=== PATIENT | male | born 1960 | race Caucasian/White ===

== ENCOUNTER 2017-01-17 12:31 | Emergency (ER) | payer OTHER ==
[2017-01-17] MEDS ORDERED: NS 1,000 ML IV ONE ×2 (13:14→13:23)
[2017-01-17] MEDS ORDERED: HALOPERIDOL LACT 5 MG/ML INJ IVP ONE ×2 (13:18→14:17)
[2017-01-17 13:40] LABS: % IMMATURE GRANULYOCYTES 0.6 % (0.0-1.1); ABSOLUTE IMMATURE GRANULOCYTES 0.14 10^3/uL (0.00-0.10); ADD DIFF? NO; ADD MORPH? NO; ADD SCAN? NO; ATYPICAL LYMPHOCYTE FLAG 0 (0-99); FRAGMENT RBC FLAG 0 (0-99); HEMATOCRIT 42.7 % (40.0-51.0); HEMOGLOBIN 14.2 g/dL (13.7-17.5); LEFT SHIFT FLG 20 (0-99); LIPEMIA HEMOLYSIS FLAG 80 (0-99); MEAN CELL HEMOGLOBIN 30.4 pg (27.9-34.1); MEAN CELL HEMOGLOBIN CONCENTR. 33.3 g/dL (32.4-36.7); MEAN CELL VOLUME 91.4 fL (81.5-99.8); PLATELET CLUMPS FLAG 0 (0-99); PLATELET COUNT 344 10^3/uL (150-400); RED BLOOD CELL COUNT 4.67 10^6/uL (4.40-6.38); RED CELL DISTRIBUTION WIDTH 13.5 % (11.5-15.2)
[2017-01-17 13:45] LABS: ANION GAP 18 mEq/L (8-16); CARBON DIOXIDE 21 mEq/l (22-31); CHLORIDE 105 mEq/L (97-110); CREATININE 1.2 mg/dL (0.7-1.3); GLOMERULAR FILTRATION RATE > 60; GLUCOSE 103 mg/dL (70-100); POTASSIUM 4.8 mEq/L (3.5-5.2); SODIUM 144 mEq/L (134-144)
--- NOTE | 2017-01-17 14:16 | UCPHY ---
H & P Patient Type: Established Chief Complaint Nursing Narrative: vomiting, diarrhea 2 hours. finished 12.1 mile marathon this am. Time Seen by Provider: 01/17/17 12:42 HPI/ROS: CHIEF COMPLAINT: Vomiting and abdominal pain History by patient HISTORY OF PRESENT ILLNESS: 56 yo man with history of gastroparesis and prior episodes of severe vomiting for which she has seen many specialists in the past and which often occur after extreme sporting events, though also at other times as well, presents today with nausea vomiting abdominal pain which began after running a half marathon. On arrival here the patient was retching and unable to provide a history initially. Patient states he drinks very little water prior to running a race, did not take anything during the race and only drank a little bit afterwards but then began vomiting immediately after that. This is similar to prior episodes that he has had. He tried taking some Zofran at home without any relief REVIEW OF SYSTEMS: As in HPI, and all other systems reviewed and are negative Source: Patient, Family - Personal History Tetanus Vaccine Date: 2012 - Medical/Surgical History Hx Asthma: No Hx Chronic Respiratory Disease: No Hx Diabetes: No Hx Cardiac Disease: No Hx Renal Disease: No Hx Cirrhosis: No Hx Alcoholism: No Hx HIV/AIDS: No Hx Splenectomy or Spleen Trauma: No Other PMH: Gastroparesis, cholecystectomy - Family History Significant Family History: No pertinent family hx - Social History Smoking Status: Former smoker - Physical Exam Exam: General Appearance: Alert, pale, uncomfortable appearing. Poor eye contact Eyes: Pupils equal and round no pallor or injection. ENT, Mouth: Mucous membranes moist. Respiratory: Normal, effort, There are no retractions, lungs are clear to auscultation. Cardiovascular: Regular rate and rhythm. Gastrointestinal: Abdomen is soft and mild diffusely nontender, no masses, bowel sounds normal. Neurological: Awake, alert and oriented x 3, no pronator drift, normal gait, no pronator drift Skin: Warm and dry, no rashes. Musculoskeletal: Neck is supple nontender. Extremities are symmetrical, full range of motion. Psychiatric: Patient has flat affect, there is no agitation. Constitutional: Initial Vital Signs Temperature (C) 36.9 C 01/17/17 13:09 Heart Rate 72 01/17/17 13:09 Respiratory Rate 18 01/17/17 13:09 Blood Pressure 125/73 H 01/17/17 13:09 O2 Sat (%) 92 01/17/17 13:09 O2 Delivery Mode Nasal Cannula O2 (L/minute) 2 Allergies/Adverse Reactions: Penicillins Allergy (Severe, Verified 06/28/16 17:45) Anaphylaxis Home Medications: Medication Instructions Recorded Omeprazole [Prilosec 20 mg] 20 mg PO DAILY 07/09/13 Glucosamine HCl/Chondr Booker A Na 1 each PO DAILY 06/28/16 [Glucosamine-Chondroitin Cap] Ondansetron [Zofran Odt] 8 mg PO Q6 PRN 06/28/16 Medical Decision Making ED Course/Re-evaluation: 56-year-old male with a long history of abdominal pain and vomiting thought to be due to gastroparesis for which he has seen multiple specialists in the past and is often associated with extreme sports presents with nausea and vomiting after half marathon today. Patient was initially ill appearing but improved with IV fluids and Haldol. Labs were notable for elevated white blood cell how , normal sodium and elevated BUN but normal creatinine ratio that suggests dehydration. There is no fever or other indication of acute infection. While being observed in the emergency department he began to have more nausea and was given a 2nd dose of Haldol and a 2nd L of IV normal saline, after which she slept and then woke feeling much better. Vital signs remained stable and the patient was improved. As this is a chronic ongoing problem for him, there is no indication for imaging. Patient is discharged home in improved condition to follow up with his primary care physician. - Data Points Laboratory Results: Laboratory Results 01/17/17 13:10 01/17/17 13:10 01/17/17 01/17/17 13:10 13:10 WBC 22.64 10^3/uL H 10^3/uL (3.80-9.50) RBC 4.67 10^6/uL 10^6/uL (4.40-6.38) Hgb 14.2 g/dL g/dL (13.7-17.5) Hct 42.7 % % (40.0-51.0) MCV 91.4 fL fL (81.5-99.8) MCH 30.4 pg pg (27.9-34.1) MCHC 33.3 g/dL g/dL (32.4-36.7) RDW 13.5 % % (11.5-15.2) Plt Count 344 10^3/uL 10^3/uL (150-400) MPV 9.0 fL fL (8.7-11.7) Neut % (Auto) 83.1 % H % (39.3-74.2) Lymph % (Auto) 11.7 % L % (15.0-45.0) [place] % (Auto) 4.4 % L % (4.5-13.0) Eos % (Auto) 0.0 % L % (0.6-7.6) Baso % (Auto) 0.2 % L % (0.3-1.7) Nucleat RBC Rel Count 0.0 % % (0.0-0.2) Absolute Neuts (auto) 18.80 10^3/uL H 10^3/uL (1.70-6.50) Absolute Lymphs (auto) 2.65 10^3/uL 10^3/uL (1.00-3.00) Absolute Monos (auto) 1.00 10^3/uL H 10^3/uL (0.30-0.80) Absolute Eos (auto) 0.01 10^3/uL L 10^3/uL (0.03-0.40) Absolute Basos (auto) 0.04 10^3/uL 10^3/uL (0.02-0.10) Absolute Nucleated RBC 0.00 10^3/uL 10^3/uL (0-0.01) Immature Gran % 0.6 % % (0.0-1.1) Immature Gran # 0.14 10^3/uL H 10^3/uL (0.00-0.10) Sodium 144 mEq/L mEq/L (134-144) Potassium 4.8 mEq/L mEq/L (3.5-5.2) Chloride 105 mEq/L mEq/L (97-110) Carbon Dioxide 21 mEq/l L mEq/l (22-31) Anion Gap 18 mEq/L H mEq/L (8-16) BUN 38 mg/dL H mg/dL (7-23) Creatinine 1.2 mg/dL mg/dL (0.7-1.3) Estimated GFR > 60 Glucose 103 mg/dL H mg/dL (70-100) Calcium 10.0 mg/dL mg/dL (8.5-10.4) Medications Given: Discontinued Medications Haloperidol Lactate (Haldol Injection) 2.5 mg IVP EDNOW ONE Stop: 01/17/17 13:19 Last Admin: 01/17/17 13:25 Dose: 2.5 mg Haloperidol Lactate (Haldol Injection) 2.5 mg IVP EDNOW ONE Stop: 01/17/17 14:18 Last Admin: 01/17/17 14:36 Dose: 2.5 mg Sodium Chloride (Ns) 1,000 mls @ 0 mls/hr IV ONCE ONE PRN Reason: Wide Open Stop: 01/17/17 13:15 Last Admin: 01/17/17 13:05 Dose: 1,000 mls Sodium Chloride (Ns) 1,000 mls @ 0 mls/hr IV ONCE ONE PRN Reason: Wide Open Stop: 01/17/17 13:24 Last Admin: 01/17/17 13:30 Dose: 1,000 mls Departure - Departure Clinical Impression: Dehydration Vomiting Qualifiers: Vomiting type: unspecified Vomiting Intractability: non-intractable Nausea presence: with nausea Qualified Code(s): R11.2 - Nausea with vomiting, unspecified Condition: Fair Instructions: Acute Nausea and Vomiting (ED) Additional Instructions: You were seen by Dr. Delores Alejandro today. Return for any worsening or new concerns. Please follow up with Dr. Galeas next week. Referrals: NONE *PRIMARY CARE P,. [Primary Care Provider] - As per Instructions - PQRS PQRS Measurement: NA
[2017-01-17 15:32] VITALS: RESP 16
[2017-01-17 16:13] VITALS: BP 105/53; PULSE 48; TEMP 97.7; O2SAT 95
== END 2017-01-17 15:49 | disposition home or self-care (01) ==
LOC: CED 12:31
DX: R11.2 Nausea with vomiting, unspecified (principal); E86.0 Dehydration; K31.84 Gastroparesis
CPT/HCPCS: 80048-PO; 85025-PO; 96361-PO; 96374-PO; 96376-PO; 99214-PO; G0463-PO

== ENCOUNTER 2017-04-18 12:41 | Emergency (ER) | payer OTHER ==
[2017-04-18] MEDS ORDERED: NS 1,000 ML IV ONE ×2 (12:55→13:42)
[2017-04-18] MEDS ORDERED: ONDANSETRON 4 MG/2 ML VIAL IVP ONE (12:55)
[2017-04-18 13:14] LABS: CREATININE 1.3 mg/dL (0.7-1.3); POTASSIUM 4.8 mEq/L (3.5-5.2)
--- NOTE | 2017-04-18 13:20 | CPEKG ---
Heart Rate: 55 RR Interval: 1091 P-R Interval: 176 QRSD Interval: 96 QT Interval: 508 QTC Interval: 486 P Angel[place]: 80 QRS Angelica: 31 T Wave Angelica: 43 EKG Severity - BORDERLINE ECG - EKG Impression: SINUS RHYTHM EKG Impression: BORDERLINE PROLONGED QT INTERVAL Electronically Signed By: Acosta Dunn 18-Apr-2017 13:57:34
[2017-04-18] MEDS ORDERED: METOCLOPRAMIDE 10 MG/2 ML VIAL IVP ONE (13:28)
[2017-04-18 13:40] LABS: COLOR YELLOW; LEUKOCYTE ESTERASE,URINE NEGATIVE (NEGATIVE); NITRITE,URINE NEGATIVE (NEGATIVE); PH,URINE 5.5 (5.0-7.5)
[2017-04-18 13:46] LABS: HYALINE CASTS >182 /lpf (0-1); MUCUS 1+ /lpf (NONE-1+)
[2017-04-18 13:47] LABS: WBC,URINE 25-50 /hpf (0-3)
[2017-04-18 13:48] LABS: AMORPHOUS 1+ /hpf (NONE-1+); BACTERIA TRACE /hpf (NONE SEEN)
--- NOTE | 2017-04-18 13:51 | EDPHY ---
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 hx of Gastroparesis Time Seen by Provider: 04/18/17 13:05 HPI/ROS: This patient just finished a full Triatholon at 11:00 a.m. and developed vomiting thereafter. He has a history of gastroparesis and had a similar episode in June of 2016 after a triathlon. The patient was found have an accelerated junctional rhythm with his presentation on June 29, 2016 to [facility] and at that time he had peaked T-waves and mildly elevated troponin the prompted admission for further evaluation. He subsequently had a resolution to normal sinus rhythm but with treadmill exercise test had recurrence of the junctional rhythm and evidence of potential ischemia. Due to this he subsequently had a myocardial profusion test on 06/[address] Villalpando that showed no evidence of ischemic abnormalities. He also had an echocardiogram on June 29, 2016 that revealed mild aortic insufficiency and was otherwise unremarkable. He reports vomiting 4 times since the race attributes this to gastric paresis. He feels fatigued, consistent with prior try Ethilon denies any other associated symptoms. He felt well prior to the race. ROS: Constitutional: No fevers. No other constitutional symptoms prior to the race. Musculoskeletal: No significant muscle pain. HEENT: No recent URI symptoms. No sore throat. No other complaints Pulmonary: No coughing. No dyspnea. No pleuritic pain. Cardiovascular: No chest pain, no heart palpitations, no lower extremity swelling. GI: He denies any abdominal pain. : No complaints Integumentary: No rash. Complete review of symptoms is otherwise negative. Source: Patient, Family (Accompanied by his also provides history) - Personal History Current Tetanus Diphtheria and Acellular Pertussis (TDAP): Yes Tetanus Vaccine Date: 2012 - Medical/Surgical History Hx Asthma: No Hx Chronic Respiratory Disease: No Hx Diabetes: No Hx Cardiac Disease: No Hx Renal Disease: No Hx Cirrhosis: No Hx Alcoholism: No Hx HIV/AIDS: No Hx Splenectomy or Spleen Trauma: No Other PMH: Gastroparesis, cholecystectomy. GERD - Social History Smoking Status: Former smoker Constitutional: Initial Vital Signs Temperature (C) 36.3 C 04/18/17 12:45 Heart Rate 68 04/18/17 12:45 Respiratory Rate 20 04/18/17 12:45 Blood Pressure 115/75 04/18/17 12:45 O2 Sat (%) 98 04/18/17 12:45 O2 Delivery Mode Room Air Allergies/Adverse Reactions: Penicillins Allergy (Severe, Verified 04/18/17 12:54) Anaphylaxis Home Medications: Medication Instructions Recorded Omeprazole [Prilosec 20 mg] 20 mg PO DAILY 07/09/13 Glucosamine HCl/Chondr Booker A Na 1 each PO DAILY 06/28/16 [Glucosamine-Chondroitin Cap] Ondansetron [Zofran Odt] 8 mg PO Q6 PRN 06/28/16 Ondansetron Odt [Zofran Odt] 4 - 8 mg PO Q4PRN PRN #4 tab 04/18/17 Medical Decision Making - Diagnostics EKG Interpretation: 12 lead EKG performed at 1:19 p.m. indication vomiting, rule out TX Sinus rhythm at 55 Intervals: Normal throughout except for QTC of [address] [place]: P of 80, QRS of 31, T 43 ST segments are normal throughout T-waves are somewhat peaked anteriorly but appear consistent in terms of their proportion to QRS to a previous EKG performed June 29, 2016. ED Course/Re-evaluation: IV normal saline bolus Zofran 4 mg Reglan 5 mg and Benadryl 12.5 mg IV 2nd L saline Review of labs reveals significant leukocytosis. Electrolytes are normal. Urinalysis is normal exception of ketones consistent with dehydration. Discussion: Patient with nausea vomiting, history of gastroparesis after finishing try Ethilon with mild dehydration. He has significant leukocytosis on his labs but similar to his leukocytosis after finishing it try Ethilon 1915. White count that time was 23,000 with no infectious etiology noted during hospital workup. Findings today are consistent with extreme exertion of his triathalon. I Find no evidence of acute TX currently or other complicating factors. Will plan to hydrate the patient with discharge home provided continued improvement. Patient feels improved after 2 L normal saline and antiemetics. Also treat him with Toradol due to complaint of left trapezius pain with history of the same. On repeat examination at around 2:10 p.m. the patient has left trapezius tenderness that reproduces his symptoms. This treated with Toradol 30 mg IV with improvement. He then tolerates p. o. fluids and ambulates without difficulty feeling significantly improved. Discussion: Patient here with findings consistent with heat exhaustion and vomiting improved with treatment without evidence of other complicating factors. He has had thorough cardiac workup in the past on June 30 2016 that was negative for ischemic disease or significant valvular/structural disease. Will plan to discharge him home with his with Jon pulido.r.nNuria. He will return for any significant worsening despite the treatment plan. - Data Points Laboratory Results: Laboratory Results 04/18/17 13:00 04/18/17 04/18/17 04/18/17 13:30 13:00 13:00 Sodium 145 mEq/L H mEq/L (134-144) Potassium 4.8 mEq/L mEq/L (3.5-5.2) Chloride 107 mEq/L mEq/L (97-110) Carbon Dioxide 21 mEq/l L mEq/l (22-31) Anion Gap 17 mEq/L H mEq/L (8-16) BUN 28 mg/dL H mg/dL (7-23) Creatinine 1.3 mg/dL mg/dL (0.7-1.3) Estimated GFR 57 Glucose 87 mg/dL mg/dL (70-100) Calcium 10.0 mg/dL mg/dL (8.5-10.4) Total Bilirubin 1.1 mg/dL mg/dL (0.1-1.4) Conjugated Bilirubin 0.4 mg/dL mg/dL (0.0-0.5) Unconjugated Bilirubin 0.7 mg/dL mg/dL (0.0-1.1) AST 63 IU/L H IU/L (17-59) ALT 65 IU/L IU/L (21-72) Alkaline Phosphatase 86 IU/L IU/L (38-126) Total Protein 7.0 g/dL g/dL (6.3-8.2) Albumin 4.5 g/dL g/dL (3.5-5.0) Lipase 190.0 IU/L IU/L (23-300) Urine Color YELLOW Urine Appearance CLEAR Urine pH 5.5 (5.0-7.5) Ur Specific [place] >= 1.030 (1.002-1.030) Urine Protein 2+ H (NEGATIVE) Urine Ketones 2+ H (NEGATIVE) Urine Blood NEGATIVE (NEGATIVE) Urine Nitrate NEGATIVE (NEGATIVE) Urine Bilirubin NEGATIVE (NEGATIVE) Urine Urobilinogen 0.2 EU EU (0.2-1.0) Ur Leukocyte Esterase NEGATIVE (NEGATIVE) Urine RBC 5-10 /hpf H /hpf (0-3) Urine WBC 25-50 /hpf H /hpf (0-3) Ur Epithelial Cells TRACE /lpf /lpf (NONE-1+) Amorphous Sediment 1+ /hpf /hpf (NONE-1+) Urine Bacteria TRACE /hpf H /hpf (NONE SEEN) Hyaline Casts >182 /lpf H /lpf (0-1) Urine Mucus 1+ /lpf /lpf (NONE-1+) Urine Glucose NEGATIVE (NEGATIVE) Medications Given: Discontinued Medications Diphenhydramine HCl (Benadryl Injection) 25 mg IVP EDNOW ONE Stop: 04/18/17 13:29 Last Admin: 04/18/17 13:41 Dose: 12.5 mg Sodium Chloride (Ns) 1,000 mls @ 0 mls/hr IV ONCE ONE PRN Reason: Wide Open Stop: 04/18/17 12:56 Last Admin: 04/18/17 13:00 Dose: 1,000 mls Sodium Chloride (Ns) 1,000 mls @ 0 mls/hr IV ONCE ONE PRN Reason: Wide Open Stop: 04/18/17 13:43 Last Admin: 04/18/17 13:42 Dose: 1,000 mls Ketorolac Tromethamine (Toradol) 30 mg IVP EDNOW ONE Stop: 04/18/17 14:21 Last Admin: 04/18/17 14:28 Dose: 30 mg Metoclopramide HCl (Reglan Injection) 5 mg IVP EDNOW ONE Stop: 04/18/17 13:29 Last Admin: 04/18/17 13:41 Dose: 5 mg Ondansetron HCl (Zofran) 4 mg IVP EDNOW ONE Stop: 04/18/17 12:56 Last Admin: 04/18/17 13:00 Dose: 4 mg Departure - Departure Disposition: Home, Routine, Self-Care Clinical Impression: Gastroparesis Vomiting Qualifiers: Vomiting type: unspecified Vomiting Intractability: non-intractable Nausea presence: with nausea Qualified Code(s): R11.2 - Nausea with vomiting, unspecified Heat exhaustion Qualifiers: Encounter type: initial encounter Qualified Code(s): T67.5XXA - Heat exhaustion , unspecified, initial encounter Condition: Good Instructions: Heat Exhaustion (ED), Acute Nausea and Vomiting (ED) Additional Instructions: Diagnosis: 1. Vomiting 2. Gastroparesis 3. Heat exhaustion Plan: Drink plenty fluids Zofran for nausea Ibuprofen for aches Follow up with primary care physician for any ongoing symptoms Return for any significant worsening despite treatment plan. Consider holding off on full triathalons Referrals: HERMINIA STALLINGS [Primary Care Provider] - As per Instructions Prescriptions: Ondansetron Odt [Zofran Odt] 4 - 8 mg PO Q4PRN PRN #4 tab PRN Reason: Vomiting
[2017-04-18 13:58] LABS: ALBUMIN 4.5 g/dL (3.5-5.0); BILIRUBIN,TOTAL 1.1 mg/dL (0.1-1.4); BILIRUBIN-CONJUGATED 0.4 mg/dL (0.0-0.5); BILIRUBIN-UNCONJUGATED 0.7 mg/dL (0.0-1.1)
[2017-04-18] MEDS ORDERED: KETOROLAC 30 MG/1 ML SDV IVP ONE (14:20)
[2017-04-18 14:51] VITALS: BP 126/63; PULSE 44; RESP 16; TEMP 97.7; O2SAT 100
== END 2017-04-18 14:50 | disposition home or self-care (01) ==
LOC: CED 12:41
DX: K31.84 Gastroparesis (principal); T67.5XXA Heat exhaustion, unspecified, initial encounter; Z87.891 Personal history of nicotine dependence
CPT/HCPCS: 80048-PO; 80076-PO; 81003-PO; 81015-PO; 83690-PO; 96374; J1200; J1885; J2405; J2765

== ENCOUNTER 2017-05-15 15:54 | Emergency (ER) | payer OTHER ==
--- NOTE | 2017-05-15 16:01 | EDPHY ---
H & P HPI/ROS: CHIEF COMPLAINT: Vomiting HISTORY OF PRESENT ILLNESS: This patient is a 56 year old male arriving via EMS with history of gastroparesis complaining of multiple episodes of vomiting beginning while he competed in a Half Ironman race earlier today. He completed a 1.2 mile swim and 56 mile bicycle ride, but was not able to complete the run due to vomiting. He was given Zofran and fentanyl in transport for symptom management. Vitals in transport included HR 42, BP 102/54. He has been seen four times in the past year for similar symptoms under similar conditions (competitive exertion). When participating in these events he does not hydrate adequately because of his gastroparesis. He had prior admission and negative cardiac workup on one of these visits. He is bradycardic, but this is usual for him given his activity level and he has no history of heart rhythm abnormalities. He usually takes Zofran at home to control nausea associated with his gastroparesis, and takes it once every 2-3 weeks. Currently his vomiting is unresolved. He denies muscle swelling, dark urine. He has not felt confused. REVIEW OF SYSTEMS: A ten point review of systems was performed and is negative with the exception of the items mentioned in the HPI. - Personal History Tetanus Vaccine Date: 2012 - Medical/Surgical History PMH: 1. Gastroparesis 2. Cholecystectomy 3. GERD Hx Asthma: No Hx Chronic Respiratory Disease: No Hx Diabetes: No Hx Cardiac Disease: No Hx Renal Disease: No Hx Cirrhosis: No Hx Alcoholism: No Hx HIV/AIDS: No Hx Splenectomy or Spleen Trauma: No - Social History Smoking Status: Former smoker Additional Social History: Lives in [place]. . at bedside. Former smoker. 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 - Physical Exam Exam: General Appearance: Alert. Vital signs reviewed. HR 45. Normal temperature ( 36.6). Vomiting. Eyes: Pupils equal and round, no conjunctival injection, no discharge. Anicteric. ENT, Mouth: Mucous membranes are dry, no oropharyngeal erythema or edema. Neck: No lymphadenopathy, supple. Respiratory: Lungs are clear to auscultation; no wheezes, rales, or rhonchi. Cardiovascular: Bradycardic. No murmur, rub, or gallop. Gastrointestinal: Abdomen is soft and mildly diffusely tender, no masses or organomegaly, bowel sounds present. No guarding. Skin: Warm and dry, no rashes on exposed skin, normal color. Back: Nontender to palpation over the thoracolumbar spine. No CVAT. Extremities: No muscle swelling with examination of extremities. No lower extremity edema, no calf tenderness or swelling. Neurological: Alert and oriented. Moving all four extremities easily and equally. Psychiatric: Normal affect. Constitutional: Initial Vital Signs Temperature (C) 36.6 C 05/15/17 16:03 Heart Rate 46 L 05/15/17 16:03 Respiratory Rate 14 05/15/17 16:03 Blood Pressure 125/60 H 05/15/17 16:03 O2 Sat (%) 98 05/15/17 16:03 O2 Delivery Mode Room Air Allergies/Adverse Reactions: Penicillins Allergy (Severe, Verified 04/18/17 12:54) Anaphylaxis Home Medications: Medication Instructions Recorded Omeprazole [Prilosec 20 mg] 20 mg PO DAILY 07/09/13 Glucosamine/Chondr Booker A Sod 1 each PO DAILY 06/28/16 [Glucosamine-Chondroitin Cap] Ondansetron [Zofran Odt] 8 mg PO Q6 PRN 06/28/16 Ondansetron Odt [Zofran Odt] 4 - 8 mg PO Q4PRN PRN #4 tab 04/18/17 Medical Decision Making - Diagnostics EKG Interpretation: The 12 lead EKG was interpreted by myself. See hard copy and/or "tracemaster" electronic copy for interpretation. Sinus bradycardia, rate 48. ED Course/Re-evaluation: 16:58 Reassessed patient. He is still retching and feeling poorly. Discussed lab results. He has leukocytosis (WBC over 20,000), seen previously when he presented similarly. I do not suspect infection but have considered appendicitis, pancreatitis, gastroenteritis, UTI, gastritis. Cyclic vomiting is also in my differential. He does not have localized abdominal pain. CK is 707--probably not peaked yet, but unlikely to represent significant rhabdomyolysis. Normal creatinine. Urine is not dark. He is not hypo or hyperthermic. I do not think he has heat stroke, heat exhaustion is a possibility. Patient received Reglan initially for nausea and vomiting. This was followed by Phenergan 12.5 mg IV. At 5:15 p.m. he requested an evaluation of his left shoulder. He has been having difficulty with shoulder for over a year, following an injury. It started to flare up again about 2 weeks ago. With vomiting today he is noticing trapezius muscle pain. On examination he has full passive range of motion of his left arm, pain when he tries to elevate his left arm over his head actively. Strength is 5/5 in his left upper extremity. Sensation intact to light touch over both upper extremities. Radial pulses 2+. Does have trapezius muscle spasm on the left. He is being given Valium 2 mg IV for treatment of muscle spasm. Re-evaluated at 6:00 p.m.. Sleeping. 6:30 p.m. patient has been up to bathroom. On reexamination his abdomen is soft with mild diffuse tenderness. He states that his nausea has improved. Vomiting seems to have subsided. Will continue with IV fluids. He has received 2 L normal saline. 7s:15 PM: No further vomiting. He feels well enough to return home. He will FU with his PCP. 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 - Data Points Laboratory Results: Laboratory Results 05/15/17 16:00 05/15/17 16:00 Medications Given: Discontinued Medications Diazepam (Valium Injection) 2 mg IVP EDNOW ONE Stop: 05/15/17 17:25 Last Admin: 05/15/17 17:37 Dose: 2 mg Sodium Chloride (Ns) 1,000 mls @ 0 mls/hr IV EDNOW ONE; Wide Open PRN Reason: Protocol Stop: 05/15/17 16:10 Last Admin: 05/15/17 16:16 Dose: 1,000 mls Sodium Chloride (Ns) 1,000 mls @ 0 mls/hr IV EDNOW ONE; Wide Open PRN Reason: Protocol Stop: 05/15/17 19:37 Last Admin: 05/15/17 19:40 Dose: 1,000 mls Sodium Chloride (Ns) 1,000 mls @ 0 mls/hr IV EDNOW ONE; Wide Open PRN Reason: Protocol Stop: 05/15/17 19:38 Last Admin: 05/15/17 19:39 Dose: 1,000 mls Metoclopramide HCl (Reglan Injection) 10 mg IVP EDNOW ONE Stop: 05/15/17 16:17 Last Admin: 05/15/17 16:18 Dose: 10 mg Promethazine HCl (Phenergan) 12.5 mg IVP EDNOW ONE Stop: 05/15/17 17:03 Last Admin: 05/15/17 17:18 Dose: 12.5 mg Departure - Departure Disposition: Home, Routine, Self-Care Clinical Impression: Dehydration Vomiting Qualifiers: Vomiting type: unspecified Vomiting Intractability: non-intractable Nausea presence: with nausea Qualified Code(s): R11.2 - Nausea with vomiting, unspecified Heat exhaustion Qualifiers: Encounter type: initial encounter Qualified Code(s): T67.5XXA - Heat exhaustion , unspecified, initial encounter Condition: Good Instructions: Dehydration (ED), Acute Nausea and Vomiting (ED), Heat Exhaustion (ED) Additional Instructions: Let Dr. Gilbert know about today's emergency department visit. Return if you have more nausea and vomiting, feel dizzy/lightheaded/faint, have abdominal pain, develop any new or concerning symptoms. Referrals: HERMINIA GILBERT [Primary Care Provider] - As per Instructions Physician Review and Approval Statement: 05/15/17 16:01 Portions of this note were transcribed by the certified medical biller. I, Dr. Anni Matamoros, personally performed the history, physical exam, and medical decision- making; and confirmed the accuracy of the information in the transcribed note.
[2017-05-15 16:04] VITALS: TEMP 97.9
--- NOTE | 2017-05-15 16:07 | CPEKG ---
Heart Rate: 48 RR Interval: 1250 P-R Interval: 160 QRSD Interval: 92 QT Interval: 524 QTC Interval: 469 P [place]: 72 QRS [place]: 34 T Wave [place]: 35 EKG Severity - OTHERWISE NORMAL ECG - EKG Impression: SINUS BRADYCARDIA Electronically Signed By: Anni Matamoros 15-May-2017 18:00:43
[2017-05-15] MEDS ORDERED: NS 1,000 ML IV ONE (16:09)
[2017-05-15] MEDS ORDERED: METOCLOPRAMIDE 10 MG/2 ML VIAL IVP ONE (16:16)
[2017-05-15 16:17] LABS: % IMMATURE GRANULYOCYTES 0.6 % (0.0-1.1); ABSOLUTE IMMATURE GRANULOCYTES 0.12 10^3/uL (0.00-0.10); ADD DIFF? NO; ADD MORPH? NO; ADD SCAN? NO; ATYPICAL LYMPHOCYTE FLAG 0 (0-99); FRAGMENT RBC FLAG 0 (0-99); HEMATOCRIT 39.4 % (40.0-51.0); HEMOGLOBIN 12.6 g/dL (13.7-17.5); LEFT SHIFT FLG 10 (0-99); LIPEMIA HEMOLYSIS FLAG 80 (0-99); MEAN CELL HEMOGLOBIN 29.7 pg (27.9-34.1); MEAN CELL VOLUME 92.9 fL (81.5-99.8); MEAN PLATELET VOLUME 9.3 fL (8.7-11.7); PLATELET CLUMPS FLAG 10 (0-99); PLATELET COUNT 300 10^3/uL (150-400); RED BLOOD CELL COUNT 4.24 10^6/uL (4.40-6.38); RED CELL DISTRIBUTION WIDTH 14.5 % (11.5-15.2)
[2017-05-15 16:44] LABS: ANION GAP 16 mEq/L (8-16); CALCIUM 9.1 mg/dL (8.5-10.4); CARBON DIOXIDE 20 mEq/l (22-31); CHLORIDE 108 mEq/L (97-110); GLOMERULAR FILTRATION RATE > 60; GLUCOSE 76 mg/dL (70-100); POTASSIUM 4.6 mEq/L (3.5-5.2); SODIUM 144 mEq/L (134-144)
[2017-05-15 17:01] LABS: CK-MB INTERPRETATION NEGATIVE (NEGATIVE)
[2017-05-15] MEDS ORDERED: PROMETHAZINE HCL 25 MG/ML INJ IVP ONE (17:02)
[2017-05-15 17:24] VITALS: RESP 16
[2017-05-15] MEDS ORDERED: DIAZEPAM 10 MG/2 ML SYR IVP ONE (17:24)
[2017-05-15 19:26] VITALS: BP 124/67; PULSE 47; O2SAT 98
[2017-05-15] MEDS: NS 1,000 ML IV ONE ×3 (19:38→19:40)
== END 2017-05-15 19:25 | disposition home or self-care (01) ==
LOC: EDUNIT#
DX: R11.2 Nausea with vomiting, unspecified (principal); T67.5XXA Heat exhaustion, unspecified, initial encounter; E86.0 Dehydration; Z87.891 Personal history of nicotine dependence
CPT/HCPCS: 96374; J2550; J2765

== ENCOUNTER 2018-03-14 06:05 | Emergency (ER) | payer OTHER ==
[2018-03-14] MEDS ORDERED: ONDANSETRON 4 MG/2 ML VIAL IVP ONE (06:24)
[2018-03-14] MEDS ORDERED: NS 1,000 ML IV ONE ×2 (06:24→06:42)
--- NOTE | 2018-03-14 06:24 | CPEKG ---
Heart Rate: 54 RR Interval: 1111 P-R Interval: 176 QRSD Interval: 92 QT Interval: 460 QTC Interval: 436 P [place]: 70 QRS [place]: 8 T Wave [place]: 57 EKG Severity - NORMAL ECG - EKG Impression: SINUS RHYTHM Electronically Signed By: Jannette Dolan 14-Mar-2018 06:59:33
[2018-03-14] MEDS ORDERED: ONDANSETRON 4 MG/2 ML VIAL ONE (06:25)
--- NOTE | 2018-03-14 06:29 | EDPHY ---
H & P Source: Patient Exam Limitations: Clinical condition (Patient nauseated with dry heaves) - Personal History Tetanus Vaccine Date: 2012 - Medical/Surgical History Hx Asthma: No Hx Chronic Respiratory Disease: No Hx Diabetes: No Hx Cardiac Disease: No Hx Renal Disease: No Hx Cirrhosis: No Hx Alcoholism: No Hx HIV/AIDS: No Hx Splenectomy or Spleen Trauma: No Other PMH: Gastroparesis, cholecystectomy. GERD - Social History Smoking Status: Former smoker Alcohol Use: None Drug Use: None Time Seen by Provider: 03/14/18 06:17 HPI/ROS: CC: vomiting and abdominal pain HPI: This 57-year-old male with past medical history including idiopathic gastroparesis presents to the emergency department today complaining of vomiting since 4:00 a.m. He was not feeling well yesterday due to "cold-like" symptoms but the vomiting only just started approximately 2 hours prior to arrival. He also complains of diffuse abdominal discomfort that started after the vomiting. The abdominal pain radiates through to his back. He describes it as an ache and rates it at 8/10. He states he has had normal bowel movements. He denies chest pain or shortness of breath. He has felt sweaty but is unsure if he had a fever. He denies chills. He has had this type of vomiting in the past secondary to his gastroparesis and also when he has been strenuously exercising. He states he was not active over the prior few days. He has taken Zofran at home in the past but has not taken any for quite some time. He last took his usual medications yesterday morning. REVIEW OF SYSTEMS: Constitutional: No fever, no chills. Eyes: No discharge. ENT: No sore throat. Respiratory: No cough, no shortness of breath. Cardiac: No chest pain, no palpitations. Gastrointestinal: See HPI. Genitourinary: No dysuria. Musculoskeletal: No muscle aches. Skin: No rashes. Neurological: No headache. (Jannette Dolan) - Medical/Surgical History PMH: PMH: Gastroparesis, gastroesophageal reflux disease, depression, elevated troponin in the past thought to be due to strenuous exertion. Patient had a normal myocardial perfusion scan on 06/30/2016. PSH: Cholecystectomy FH: Father with h/o CAD younger than 55, rheumatic heart disease Allergies: Penicillins Meds: Lexapro, Abilify, Zofran, Prilosec (Jannette Dolan) - Physical Exam Exam: General Appearance: Alert, moderate distress, ashen appearance. Eyes: Pupils equal and round no pallor or injection. ENT, Mouth: Mucous membranes are moist. Respiratory: There are no retractions, lungs are clear to auscultation. Cardiovascular: Regular rate and rhythm. Occasional ectopic beat. Gastrointestinal: Diffusely tender to palpation. No rebound. Hyperactive bowel sounds. Neurological: Awake and alert, sensory and motor exams grossly normal. Skin: pale, slightly diaphoretic. Musculoskeletal: Neck is supple nontender. Extremities are symmetrical, full range of motion. Psychiatric: Patient is oriented X 3, there is no agitation. DIFFERENTIAL DIAGNOSIS: After history and physical exam differential diagnosis was considered for but not limited to: nausea, vomiting, gastroparesis, pancreatitis, bowel obstruction, viral syndrome, cardiac ischemia (Jannette Dolan) Constitutional: Initial Vital Signs Temperature (C) 36.8 C 03/14/18 06:37 Heart Rate 56 L 03/14/18 06:37 Respiratory Rate 20 03/14/18 06:37 Blood Pressure 157/78 H 03/14/18 06:37 O2 Sat (%) 100 03/14/18 06:37 O2 Delivery Mode Nasal Cannula O2 (L/minute) 2 Allergies/Adverse Reactions: Penicillins Allergy (Severe, Verified 03/14/18 06:06) Anaphylaxis Home Medications: Medication Instructions Recorded Omeprazole [Prilosec 20 mg] 20 mg PO DAILY 07/09/13 ARIPiprazole [Abilify 5 mg (*)] 03/14/18 Escitalopram Oxalate [Lexapro 10 03/14/18 MG] Ondansetron Odt [Zofran Odt 4 mg 03/14/18 (*)] Ondansetron Odt [Zofran Odt 4 mg 4 mg PO Q4 PRN #20 tab 03/14/18 (RX)] Medical Decision Making - Diagnostics EKG Interpretation: Sinus bradycardia, HR 54, no acute ischemic changes. QTc 436; Prior EKG 2016 shows sinus bradycardia HR 55, borderline prolonged QT with QTc 486 ( Jannette Dolan) ED Course/Re-evaluation: The patient was seen and examined. Vital signs reviewed. After being here approximately 0.5 hr the nurse noted a room air oxygen saturation of of 85%. 2 L of oxygen was placed. The nurse noted his hands were cold at the time. We will monitor this. He his EKG showed no acute ischemic changes. Had an initial elevated lactic acid of 2.6. He is receiving 2L of IV fluids and 4 mg of Zofran. A repeat Lactic Acid will be obtained after the second L of fluids. He will be signed out to the oncoming emergency provider Dr. Alfonso Fisher for further evaluation/treatment, determination if abdominal imaging is warranted, and disposition. (Jannette Dolan) 7:05 a.m. I evaluated the patient. He is well appearing. His abdominal exam is nontender. He complains of cyclic vomiting which she states somewhat typical for him. I will treat him with Haldol and Benadryl. He states that this has worked for him in the past. He is being hydrated. The patient's chemistry is unremarkable although it is not transferring into the chart. His sodium was 141 potassium 4.0, bicarb 26, chlorine 105, glucose 161, calcium 9.4 , BUN 18 and creatinine 1.3. LFTs are also unremarkable. 8:45 a.m. the patient is sleeping comfortably. He is easily aroused. His abdominal exam remains benign. He is asking go to bathroom. He is feeling much better and would like to go home. (Alfonso Fisher) Differential Diagnosis: Partial list of the Differential diagnosis considered include but were not limited to; cyclic vomiting, gastroparesis, dehydration and although unlikely based on the history and physical exam, I also considered appendicitis, obstruction, ischemia. I discussed these differential diagnoses and the plan with the patient as well as the usual and expected course. The patient understands that the diagnosis is provisional and that in medicine we are not always correct and that further workup is often warranted. Usual and customary warnings were given. All of the patient's questions were answered. The patient was instructed to return to the emergency department should the symptoms at all worsen or return, otherwise to followup with the physician as we discussed. (Alfonso Fisher) - Data Points Laboratory Results: Laboratory Results 03/14/18 06:33 03/14/18 03/14/18 03/14/18 06:43 06:39 06:38 WBC RBC Hgb Hct MCV MCH MCHC RDW Plt Count MPV Neut % (Auto) Lymph % (Auto) [place] % (Auto) Eos % (Auto) Baso % (Auto) Nucleat RBC Rel Count Absolute Neuts (auto) Absolute Lymphs (auto) Absolute Monos (auto) Absolute Eos (auto) Absolute Basos (auto) Absolute Nucleated RBC Immature Gran % Immature Gran # POC Sodium 141 mEq/L mEq/L (135-145) POC Potassium 4.0 mEq/L mEq/L (3.3-5.0) POC Chloride 105.0 mEq/L mEq/L (97-110) POC Total CO2 26 mEq/L mEq/L (22-31) POC BUN 18 mg/dL mg/dL (7-23) POC Creatinine 1.3 mg/dL mg/dL (0.7-1.3) POC Glucose 161 mg/dL H mg/dL (70-100) POC Lactic Acid Maurice 2.6 mmol/L H mmol/L (0.7-2.1) POC Calcium 9.4 mg/dL mg/dL (8.5-10.4) POC Total Bilirubin 1.1 mg/dL mg/dL (0.1-1.4) POC AST 37 IU/L IU/L (17-59) POC ALT 26 IU/L IU/L (21-72) POC Alk Phosphatase 103 IU/L IU/L (38-126) POC Troponin I 0.00 ng/mL ng/mL (0.00-0.08) POC Total Protein 7.8 g/dL g/dL (6.3-8.2) POC Albumin 4.5 g/dL g/dL (3.5-5.0) Lipase 03/14/1818 06:33 06:33 WBC 11.19 10^3/uL H 10^3/uL (3.80-9.50) RBC 4.55 10^6/uL 10^6/uL (4.40-6.38) Hgb 13.5 g/dL L g/dL (13.7-17.5) Hct 41.0 % % (40.0-51.0) MCV 90.1 fL fL (81.5-99.8) MCH 29.7 pg pg (27.9-34.1) MCHC 32.9 g/dL g/dL (32.4-36.7) RDW 14.7 % % (11.5-15.2) Plt Count 240 10^3/uL 10^3/uL (150-400) MPV 9.3 fL fL (8.7-11.7) Neut % (Auto) 82.4 % H % (39.3-74.2) Lymph % (Auto) 12.0 % L % (15.0-45.0) [place] % (Auto) 4.5 % % (4.5-13.0) Eos % (Auto) 0.4 % L % (0.6-7.6) Baso % (Auto) 0.5 % % (0.3-1.7) Nucleat RBC Rel Count 0.0 % % (0.0-0.2) Absolute Neuts (auto) 9.23 10^3/uL H 10^3/uL (1.70-6.50) Absolute Lymphs (auto) 1.34 10^3/uL 10^3/uL (1.00-3.00) Absolute Monos (auto) 0.50 10^3/uL 10^3/uL (0.30-0.80) Absolute Eos (auto) 0.04 10^3/uL 10^3/uL (0.03-0.40) Absolute Basos (auto) 0.06 10^3/uL 10^3/uL (0.02-0.10) Absolute Nucleated RBC 0.00 10^3/uL 10^3/uL (0-0.01) Immature Gran % 0.2 % % (0.0-1.1) Immature Gran # 0.02 10^3/uL 10^3/uL (0.00-0.10) POC Sodium POC Potassium POC Chloride POC Total CO2 POC BUN POC Creatinine POC Glucose POC Lactic Acid Maurice POC Calcium POC Total Bilirubin POC AST POC ALT POC Alk Phosphatase POC Troponin I POC Total Protein POC Albumin Lipase 68 IU/L IU/L (23-300) Medications Given: Discontinued Medications Diphenhydramine HCl (Benadryl Injection) 50 mg IVP EDNOW ONE Stop: 03/14/18 07:06 Last Admin: 03/14/18 07:10 Dose: 50 mg Haloperidol Lactate (Haldol Injection) 5 mg IVP EDNOW ONE Stop: 03/14/18 07:06 Last Admin: 03/14/18 07:18 Dose: 5 mg Sodium Chloride (Ns) 1,000 mls @ 0 mls/hr IV ONCE ONE; Wide Open PRN Reason: Protocol Stop: 03/14/18 06:25 Last Admin: 03/14/18 06:35 Dose: 1,000 mls Sodium Chloride (Ns) 1,000 mls @ 0 mls/hr IV EDNOW ONE; Wide Open PRN Reason: Protocol Stop: 03/14/18 06:43 Last Admin: 03/14/18 06:44 Dose: 1,000 mls Ondansetron HCl (Zofran) 4 mg IVP EDNOW ONE Stop: 03/14/18 06:25 Last Admin: 03/14/18 06:35 Dose: 4 mg Point of Care Test Results: Chemistry 03/14/18 03/14/18 06:43 06:39 POC Sodium 141 mEq/L mEq/L (135-145) POC Potassium 4.0 mEq/L mEq/L (3.3-5.0) POC Chloride 105.0 mEq/L mEq/L (97-110) POC Total CO2 26 mEq/L mEq/L (22-31) POC BUN 18 mg/dL mg/dL (7-23) POC Creatinine 1.3 mg/dL mg/dL (0.7-1.3) POC Glucose 161 mg/dL H mg/dL (70-100) POC Calcium 9.4 mg/dL mg/dL (8.5-10.4) POC Total Bilirubin 1.1 mg/dL mg/dL (0.1-1.4) POC AST 37 IU/L IU/L (17-59) POC ALT 26 IU/L IU/L (21-72) POC Alk Phosphatase 103 IU/L IU/L (38-126) POC Troponin I 0.00 ng/mL ng/mL (0.00-0.08) POC Total Protein 7.8 g/dL g/dL (6.3-8.2) POC Albumin 4.5 g/dL g/dL (3.5-5.0) Blood Gas/Lactic Acid-Venous 03/14/18 06:38 POC Lactic Acid Maurice 2.6 mmol/L H mmol/L (0.7-2.1) Departure - Departure Disposition: Home, Routine, Self-Care Clinical Impression: Vomiting Qualifiers: Vomiting type: unspecified Vomiting Intractability: unspecified Nausea presence : with nausea Qualified Code(s): R11.2 - Nausea with vomiting, unspecified Cyclic vomiting syndrome Qualifiers: Vomiting Intractability: non-intractable Nausea presence: with nausea Qualified Code(s): G43.A0 - Cyclical vomiting, not intractable Condition: Fair Instructions: Cyclic Vomiting Syndrome (ED) Referrals: Unknown,Unknown [Primary Care Provider] - As per Instructions Catrachito Solomon MD [[facility] [place] Primary Care Provider] - As per Instructions Prescriptions: Ondansetron Odt [Zofran Odt 4 mg (RX)] 4 mg PO Q4 PRN #20 tab PRN Reason: Nausea & Vomiting
[2018-03-14] MEDS ORDERED: HALOPERIDOL LACT 5 MG/ML INJ IVP ONE (07:05)
[2018-03-14 07:24] LABS: PLATELET COUNT 240 10^3/uL (150-400)
[2018-03-14 09:33] VITALS: BP 127/68
== END 2018-03-14 09:38 | disposition home or self-care (01) ==
LOC: CED 06:05
DX: G43.A0 Cyclical vomiting, in migraine, not intractable (principal); E86.9 Volume depletion, unspecified; Z87.891 Personal history of nicotine dependence
CPT/HCPCS: 80053-PO; 83605-PO; 84484-PO; 96374; J1200; J1630; J2405

== ENCOUNTER 2018-10-03 11:51 | Emergency (ER) | payer OTHER ==
[2018-10-03] MEDS ORDERED: ONDANSETRON 4 MG/2 ML VIAL IVP ONE (12:09)
[2018-10-03] MEDS ORDERED: NS 1,000 ML IV ONE ×3 (12:10→16:07)
[2018-10-03] MEDS ORDERED: METOCLOPRAMIDE 10 MG/2 ML VIAL IVP ONE (13:13)
[2018-10-03] MEDS ORDERED: KETOROLAC 15 MG/1 ML SDV IVP ONE (13:13)
--- NOTE | 2018-10-03 14:17 | EDPHY ---
H & P Stated Complaint: pt. started vomiting and diarrhea aprox 0800. Family same s/s' s Time Seen by Provider: 10/03/18 13:02 HPI/ROS: This patient presents with vomiting diarrhea that started early this morning. He has associated generalized abdominal cramping that is moderate intensity. His and other family members have recently had vomiting and diarrhea that were all short in duration though this patient's symptoms been present now for several hours. He is unable to tolerate p.o. Fluids without vomiting. They came in by private vehicle for evaluation. ROS: Constitutional: No high fevers or chills HEENT: No sinus pain. He does have mild coryza prior to the onset of symptoms Pulmonary: No cough shortness of breath Cardiovascular: No lightheadedness. GI: No dark tarry stools or bloody stools. : No symptoms Neuro: No complaints 10 point review of symptoms is performed and otherwise negative with exception of pertinent positives and negatives listed in HPI and ROS Source: Patient Exam Limitations: No limitations - Personal History Tetanus Vaccine Date: 2012 - Medical/Surgical History Hx Asthma: No Hx Chronic Respiratory Disease: No Hx Diabetes: No Hx Cardiac Disease: No Hx Renal Disease: No Hx Cirrhosis: No Hx Alcoholism: No Hx HIV/AIDS: No Hx Splenectomy or Spleen Trauma: No Other PMH: Gastroparesis, cholecystectomy. GERD - Family History Significant Family History: No pertinent family hx - Social History Smoking Status: Former smoker Alcohol Use: Rarely Drug Use: None Additional Social History: No recent foreign travel. No suspect food ingestion - Physical Exam Exam: General Appearance: Alert, no distress. Eyes: Pupils equal and round no pallor or injection. ENT, Mouth: Mucous membranes moist. Respiratory: There are no retractions, lungs are clear to auscultation. Cardiovascular: Regular rate and rhythm. Gastrointestinal: Hyperactive bowel sounds, soft, nontender Neurological: GCS 15 Skin: Warm and dry, no rashes. Musculoskeletal: Neck is supple nontender. Extremities are symmetrical, full range of motion. Psychiatric: Mood and affect normal. DIFFERENTIAL DIAGNOSIS: After history and physical exam differential diagnosis was considered for for early gastroenteritis, food intolerance, doubt bowel obstruction Constitutional: Initial Vital Signs Temperature (C) 37.5 C 10/03/18 12:05 Heart Rate 57 L 10/03/18 12:05 Respiratory Rate 16 10/03/18 12:05 Blood Pressure 155/71 H 10/03/18 12:05 O2 Sat (%) 96 10/03/18 12:05 O2 Delivery Mode Room Air Allergies/Adverse Reactions: Penicillins Allergy (Severe, Verified 03/14/18 06:06) Anaphylaxis Home Medications: Medication Instructions Recorded Omeprazole [Prilosec 20 mg] 20 mg PO DAILY 07/09/13 ARIPiprazole [Abilify 5 mg (*)] 03/14/18 Escitalopram Oxalate [Lexapro 10 03/14/18 MG] Ondansetron Odt [Zofran Odt 4 mg 03/14/18 (*)] Ondansetron Odt [Zofran Odt 4 mg 4 mg PO Q4 PRN #20 tab 03/14/18 (RX)] Ondansetron Odt [Zofran Odt] 4 - 8 mg PO Q4PRN PRN #4 tab 10/03/18 Medical Decision Making ED Course/Re-evaluation: POC labs-mild leukocytosis, metabolic panel normal IV normal saline bolus x2 L Zofran, Levsin with ongoing nausea followed by Reglan and Benadryl with further improvement. Toradol IV with relief of cramping Patient then tolerated p.o. Intake without emesis patient's presentation consistent with viral gastroenteritis. I counseled him regarding this. Will plan to send him home on Zofran light diet. He understands need to return emergency department for any significant worsening despite the treatment - Data Points Medications Given: Discontinued Medications Diphenhydramine HCl (Benadryl Injection) 25 mg IVP EDNOW ONE Stop: 10/03/18 13:14 Last Admin: 10/03/18 13:26 Dose: 25 mg Haloperidol Lactate (Haldol Injection) 2.5 mg IVP EDNOW ONE Stop: 10/03/18 15:55 Last Admin: 10/03/18 16:10 Dose: 2.5 mg Sodium Chloride (Ns) 1,000 mls @ 0 mls/hr IV ONCE ONE PRN Reason: Wide Open Stop: 10/03/18 12:11 Last Admin: 10/03/18 12:10 Dose: 1,000 mls Sodium Chloride (Ns) 1,000 mls @ 0 mls/hr IV ONCE ONE; Wide Open PRN Reason: Protocol Stop: 10/03/18 13:13 Last Admin: 10/03/18 13:24 Dose: 1,000 mls Sodium Chloride (Ns) 1,000 mls @ 0 mls/hr IV ONCE ONE PRN Reason: Wide Open Stop: 10/03/18 16:08 Last Admin: 10/03/18 16:09 Dose: 1,000 mls Ketorolac Tromethamine (Toradol) 15 mg IVP EDNOW ONE Stop: 10/03/18 13:14 Last Admin: 10/03/18 13:24 Dose: 15 mg Metoclopramide HCl (Reglan Injection) 5 mg IVP EDNOW ONE Stop: 10/03/18 13:14 Last Admin: 10/03/18 13:27 Dose: 5 mg Ondansetron HCl (Zofran) 4 mg IVP EDNOW ONE Stop: 10/03/18 12:10 Last Admin: 10/03/18 12:11 Dose: 4 mg Point of Care Test Results: CBC CBC Collection Date 10/03/18 CBC Collection Time 12:10 WBC 12.3 RBC 4.98 HGB 15.3 HCT 44.8 PLT 265 Neut # 10.5 Neut 85.8 LYMPH # 1.6 LYMPH 12.7 Other WBC # 0.2 Other WBC 1.5 MCV 90.0 Chemistry 10/03/18 12:29 POC Sodium 147 mEq/L H mEq/L (135-145) POC Potassium 4.1 mEq/L mEq/L (3.3-5.0) POC Chloride 100.0 mEq/L mEq/L (97-110) POC Total CO2 25 mEq/L mEq/L (22-31) POC BUN 20 mg/dL mg/dL (7-23) POC Creatinine 1.1 mg/dL mg/dL (0.7-1.3) POC Glucose 181 mg/dL H mg/dL (70-100) POC Calcium 9.8 mg/dL mg/dL (8.5-10.4) Departure - Departure Disposition: Home, Routine, Self-Care Clinical Impression: Viral gastroenteritis, Dehydration Condition: Good Instructions: Ondansetron (By mouth), Gastroenteritis (ED) Additional Instructions: Diagnosis: Viral gastroenteritis 2. Dehydration Plan: Drink plenty fluids Light diet until you feel improved Zofran for nausea vomiting if needed Return for any significant worsening despite treatment plan Referrals: CHRIS PIERRE [Other] - As per Instructions Prescriptions: Ondansetron Odt [Zofran Odt] 4 - 8 mg PO Q4PRN PRN #4 tab PRN Reason: Vomiting
[2018-10-03] MEDS ORDERED: HALOPERIDOL LACT 5 MG/ML INJ IVP ONE (15:54)
[2018-10-03 17:44] VITALS: BP 139/67
== END 2018-10-03 17:45 | disposition home or self-care (01) ==
LOC: CED 11:51
DX: A08.4 Viral intestinal infection, unspecified (principal); E86.0 Dehydration; K31.84 Gastroparesis; K21.9 Gastro-esophageal reflux disease without esophagitis; Z87.891 Personal history of nicotine dependence
CPT/HCPCS: 80048-PO; 96374; J1200; J1630; J1885; J2405; J2765